=== PATIENT | male | born 1950 | race Caucasian/White ===

== ENCOUNTER 2017-06-04 09:42 | Day surgery (SDC) | payer MEDICARE, OTHER ==
[2017-06-02 13:20] LABS: BASOPHILS % 0.6 % (0.0-2.0); EOSINOPHILS # 0.1 10^3/ul (0.0-0.5); EOSINOPHILS % 2.9 % (0.0-7.0); HEMATOCRIT 39.7 % (42.0-52.0); HEMOGLOBIN 13.4 g/dl (14.0-18.0); LYMPHOCYTES # 0.6 10^3/ul (0.8-2.9); LYMPHOCYTES % 12.9 % (15.0-51.0); MEAN CORPUSCULAR HEMOGLOBIN 30.7 pg (29.0-33.0); MEAN CORPUSCULAR HGB CONC 33.8 g/dl (32.0-37.0); MEAN CORPUSCULAR VOLUME 91.1 fl (82.0-101.0); MEAN PLATELET VOLUME 11.1 fl (7.4-10.4); MONOCYTE # 0.5 10^3/ul (0.3-0.9); MONOCYTES % 10.5 % (0.0-11.0); NEUTROPHIL # 3.5 10^3/ul (1.6-7.5); NEUTROPHILS % 72.5 % (39.0-77.0); PLATELET COUNT 113 10^3/UL (140-415); POSITIVE DIFF @See below; RED BLOOD COUNT 4.36 10^6/ul (4.70-6.10); WHITE BLOOD COUNT 4.9 10^3/ul (4.8-10.8)
[2017-06-02 13:25] LABS: ADD UMIC YES; UR ASCORBIC ACID NEGATIVE (NEGATIVE); UR BILIRUBIN (Dip) NEGATIVE (NEGATIVE); UR BLOOD (Dip) 3+ mg/dL (NEGATIVE); UR CLARITY CLEAR (CLEAR); UR COLOR YELLOW (YELLOW); UR GLUCOSE (Dip) NEGATIVE (NEGATIVE); UR KETONES (Dip) NEGATIVE (NEGATIVE); UR LEUKOCYTE ESTERASE (Dip) NEGATIVE Leu/ul (NEGATIVE); UR NITRITE (Dip) NEGATIVE (NEGATIVE); UR RBC 41 /HPF (0-5); UR SQUAMOUS EPITHELIAL CELL FEW /HPF (FEW); UR TOTAL PROTEIN (Dip) NEGATIVE (NEGATIVE); UR UROBILINOGEN (Dip) NEGATIVE (NEGATIVE)
[2017-06-02 13:34] LABS: INR 1.36; PROTIME 16.8 Sec (12.2-14.2); PT RATIO 1.3
[2017-06-02 13:35] LABS: PARTIAL THROMBOPLASTIN TIME 33.8 Sec (25.0-35.0)
[2017-06-02 13:37] LABS: ALBUMIN 3.5 g/dl (3.3-4.9); ALBUMIN/GLOBULIN RATIO 0.57; BILIRUBIN,INDIRECT 0.8 mg/dl (0-1.1); BILIRUBIN,TOTAL 0.8 mg/dl (0.2-1.3); CALCIUM 9.5 mg/dl (8.4-10.2); CREATININE 1.06 mg/dl (0.61-1.24); POTASSIUM 4.3 mmol/L (3.5-5.1); TOTAL PROTEIN 9.6 g/dl (6.1-8.1)
[2017-06-02 14:40] LABS: ANISOCYTOSIS 1+ (0-0); BASOPHILS % (M) 2 % (0-2); EOSINOPHILS % (M) 4 % (0-7); GIANT THROMBO% (M) 3 % (0-0); HYPOCHROMASIA 1+ (0-0); MONOCYTES % (M) 5 % (0-11); PLATELET ESTIMATE DECREASED; POIKILOCYTOSIS 1+ (0-0)
[2017-06-03 14:52] VITALS: Ht 175.3 cm; Wt 102.6 kg
[2017-06-04] VITALS (12 sets, daily range): BP systolic 136–155; BP diastolic 85–94; PULSE 58–75; RESP 16–19
[~2017-06-04] VITALS: Ht 175.3 cm; Wt 102.6 kg
[~2017-06-04 09:42] MED LIST: SUCCINYLCHOLINE CHLORIDE 100 MG/5 ML SYG IV ONE
[2017-06-04] MEDS ORDERED: LACT10SO5 PO (10:26)
[2017-06-04] MEDS ORDERED: FURO40TA4 PO (10:26)
[2017-06-04] MEDS ORDERED: AMLO-147 PO (10:27)
[2017-06-04] MEDS ORDERED: ASPI-664 PO (10:27)
[2017-06-04] MEDS ORDERED: LISI20TA11 PO (10:27)
[2017-06-04] MEDS ORDERED: NOVO7030 SC ×2 (10:29)
--- NOTE | 2017-06-04 11:26 | RADRPT ---
PROCEDURE: XR Chest. CLINICAL INDICATION: Preoperative. Certain sedation. TECHNIQUE: Single frontal view. COMPARISON: None. FINDINGS: The lungs are clear. The heart size is normal. There is no pleural effusion. There is no pneumothorax. IMPRESSION: 1. Normal chest radiograph. RPTAT: QQ .Chacho Stone MD, MD Date Time Electronically viewed and signed by .Chacho Stone MD, on 06/04/2017 11:26 .R/
[2017-06-04] MEDS ORDERED: LIDOCAINE 1% (MDV) 20 ML INJ ONE (12:42)
[2017-06-04] MEDS ORDERED: MIDAZOLAM 1 MG/ML 2 ML INJ ONE (12:42)
[2017-06-04] MEDS ORDERED: PROPOFOL 20 ML ONE (12:42)
[2017-06-04] MEDS ORDERED: ONDANSETRON 4 MG INJ ONE (12:53)
[2017-06-04] MEDS ORDERED: FAMOTIDINE 20 MG INJ ONE (12:54)
[2017-06-04] MEDS ORDERED: BUPIVACAINE 0.5% (SDV) 30 ML INJ ONE (12:59)
[2017-06-04] MEDS ORDERED: KETOROLAC 30 MG INJ ONE (13:14)
--- NOTE | 2017-06-04 13:47 | OPR ---
Date/Time of Note Date/Time of Note DATE: 06/04/17 TIME: 13:44 Operative Report Procedure Date: Jun 04, 2017 Preoperative Diagnosis Phimosis and balanitis Postoperative Diagnosis Phimosis and balanitis Operation/Procedure Performed Circumcision Surgeon see signature line Physician Neonatology None Anesthesia Type: general Anesthesiologist: TOMASA PANIAGUA DO Estimated Blood Loss: minimal Transfusion none Specimen Foreskin Grafts/Implants none Complications none Pt Condition Post Procedure: stable Disposition: PACU Indications Balanitis and phimosis Procedure Description The patient was brought to the operating room. Time out was done. The patient was identified by his name, date and the procedure. Patient was given 2 g of Ancef IV at the start of the procedure. They hair around the base of the penis was shaved. The genital area was then prepped and draped in usual sterile manner. The foreskin at the level of the pelletire was marked then incised. The foreskin was then retracted and another incision was made half a centimeter proximal to the pelletier. The skin between the 2 incisions was removed. All the bleeders were electrocoagulated and good hemostasis was obtained. The subcutaneous tissue was approximated with 3-0 Vicryl interrupted sutures at the 9,12, 3 and 6 o'clock position. The incision was then closed with 3-0 Vicryl interrupted sutures. Then the patient was injected with half percent Marcaine around the base of the penis for local anesthesia. The incision was then covered was a Vaseline gauze and a Ejevan. Patient was transferred to the recovery room in stable and satisfactory condition. REZA VALENZUELA MD Jun 04, 2017 13:47
--- NOTE | 2017-06-05 15:57 | RADRPT ---
Vent Rate: 62 bpm RR Interval: 0 msec [place] Interval: 176 msec QRS Duration: 98 msec QT Interval: 432 msec QTC Interval: 438 msec P-R-T [place]: 56 - 20 - 55 degrees Normal sinus rhythm Normal ECG Electronically Signed By: Jey Cannon [id number]
== END 2017-06-04 15:33 | disposition home or self-care (01) ==
LOC: SDS 09:42
PROVIDERS: ATTEND Urology
DX: N47.1 Phimosis (principal); N48.1 Balanitis; I10 Essential (primary) hypertension; E11.9 Type 2 diabetes mellitus without complications
CPT/HCPCS: 54161; 71010; 80053; 81001; 82962; 85025; 85610; 85730; 87086; 88304; 93005; J1885; J2250; J2405; J7999